=== PATIENT | female | born 1995 | race Two or more races ===

== ENCOUNTER 2024-09-12 18:22 | Emergency (ER) | payer MEDICAID, OTHER ==
[~2024-09-12] VITALS: Ht 154.9 cm; Wt 126.3 kg
--- NOTE | 2024-09-12 18:38 | ECG ---
[facility] Test Date: 2024-09-12 Test Time: 18:30:16 Pat Name: VETO DAVEY Department: ER Room: Gender: F Track Service Person: REJI : 1995 Requested By: ERICA PATE Order Number: [id number] Reading MD: Roberto Carlos Mccrary Measurements Intervals [place] Rate: 121 P: 81 [place]: 144 QRS: 84 QRSD: 86 T: 54 QT: 325 QTc: 461 Interpretive Statements Sinus tachycardia Baseline wander in lead(s) II,aVF,V3,V4 Electronically Signed On 09-13-2024 22:14:22 PDT by Roberto Carlos Mccrary Please click the below link to view image of tracing.
--- NOTE | 2024-09-12 18:38 | ED.PDOC ---
HPI Comments 29 year old female came to ER for chest pains. Patient has history of asthma. States for the past 3 days, she has been having intermittent episodes of sharp, substernal chest pains, 9/10 intensity, associated with shortness of breath and wheezing. States she ran out off her inhalers this morning. Patient appears very anxious at this time of care. Chief Complaint: Chest Pain Time Seen by MD: 18:38 Reviewed Notes: Nurses Notes Allergies: Coded Allergies: NO KNOWN ALLERGIES (Unverified , 09/12/24) Information Source: Patient Mode of Arrival: EMS Severity: Moderate Timing: Hours Duration: Since onset Location: Substernal Radiation: No Radiation Quality: Sharp Onset: With Light Exertion Cardiac Risk Factors: None PE Risk Factors: None History of: None Modifying Factors: Nothing Associated Signs and Symptoms: SOB Past Medical History PAST MEDICAL HISTORY: Asthma Surgical History: Denies all surgeries LUMBER STACKER History: Denies all LUMBER STACKER Hx Family History Family History: Reviewed,noncontributory to illness Social History Smoker: Non-Smoker Alcohol: Denies ETOH Use Drugs: Denies Drug Use Lives In: Home Constitutional: denies: chills, diaphoresis, fatigue, fever, malaise, sweats, weakness, others EENTM: denies: blurred vision, double vision, ear bleeding, ear discharge, ear drainage, ear pain, ear ringing, eye pain, eye redness, hearing loss, mouth pain, mouth swelling, nasal discharge, nose bleeding, nose congestion, nose pain, photophobia, tearing, throat pain, throat swelling, voice changes, others Respiratory: reports: SOB at rest, shortness of breath, wheezing; denies: cough, hemoptysis, orthopnea, SOB with excertion, stridor, others Cardiovascular: reports: chest pain; denies: dizzy spells, diaphoresis, Dyspnea on exertion, edema, irregular heart beat, left arm pain, lightheadedness, palpitations, PND, syncope, others Gastrointestinal: denies: abdomen distended, abdominal pain, blood streaked bowels, constipated, diarrhea, dysphagia, difficulty swallowing, hematemesis, melena, nausea, poor appetite, poor fluid intake, rectal bleeding, rectal pain, vomiting, others Genitourinary: denies: abnormal vagina bleeding, burning, dyspareunia, dysuria, flank pain, frequency, hematuria, incontinence, pain, , vagina discharge, urgency, others Neurological: denies: dizziness, fainting, headache, left sided numbness, left sided weakness, numbness, paresthesia, pre-existing deficit, right sided numbness, right sided weakness, seizure, speech problems, tingling, tremors, weakness, others Musculoskeletal: denies: back pain, gout, joint pain, joint swelling, muscle pain, muscle stiffness, neck pain, others Integumetry: denies: bruises, change in color, change in hair/nails, dryness, laceration, lesions, lumps, rash, wounds, others Allergic/Immunocompromised: denies: Difficulty Healing, Frequent Infections, Hives, Itching, others Hematologic/Lymphatic: denies: anemia, blood clots, easy bleeding, easy bruising, swollen glands, others Endocrine: denies: excessive hunger, excessive sweating, excessive thirst, excessive urination, flushing, intolerance to cold, intolerance to heat, unexplained weight gain, unexplained weight loss, others Psychiatric: denies: anxiety, bipolar disorder, depression, hopeless, panic disorder, schizophrenia, sleepless, suicidal, others Physical Exam General Appearance: No Apparent Distress, Normal HEENT: Normal ENT Inspection, Pharynx Normal, TMs Normal Neck: Full Range of Motion, Non-Tender, Normal, Normal Inspection Respiratory: Chest Non-Tender, No Accessory Muscle Use, Normal Breath Sounds, Wheezing Cardiovascular: No Edema, No JVD, No Murmur, No Gallop, Normal Peripheral Pulses, Regular Rate/Rhythm Breast Exam: Deferred Gastrointestinal: No Organomegaly, Non Tender, No Pulsatile Mass, Normal Bowel Sounds, Soft Genitalia: Deferred Pelvic: Deferred Rectal: Deferred Extremities: No calf tenderness, Normal capillary refill, Normal inspection, Normal range of motion, Non-tender, No pedal edema Musculoskeletal : Apperance: Normal Neurologic: Alert, regulatory compliance manager II-XII nml as Tested, No Motor Deficits, Normal Affect, Normal Mood, No Sensory Deficits Cerebellar Function: Normal Reflexes: Normal Skin: Dry, Normal Color, Warm Lymphatic: No Adenopathy EKG EKG : Pulse Rate (adult): 121 Cardiac Rhythm: ST Was a procedure done? Was a procedure done?: No CP Differential Dx Differential Diagnosis: Angina, Anxiety / Panic Attack, Hyperventilation, Sinus Tachycardia Differential Diagnosis: Angina, Chest Wall Pain, Costochondritis, Esophageal reflux/spasm, Gastritis, Myocardial Infarction, Pneumonia X-Ray, Labs, Meds, VS Vital Signs Date Time Temp Pulse Resp B/P (MAP) Pulse Ox O2 Delivery O2 Flow Rate FiO2 09/12/24 19:27 102 09/12/24 18:45 18 98 Room Air* 0 21 21 09/12/24 18:38 121 09/12/24 18:30 121 09/12/24 18:28 98.0 110 20 146/86 (106) 98 98.0 Lab Test 09/12/24 18:46 Range/Units White Blood Count 11.9 H 4.4-10.8 10^3/uL Red Blood Count 4.42 4.0-5.20 10^6/uL Hemoglobin 13.6 12.2-16.2 g/dL Hematocrit 40.2 36.0-46.0 % Mean Corpuscular Volume 91.0 80.0-100.0 fL Mean Corpuscular Hemoglobin 30.7 28.0-32.0 pg Mean Corpuscular Hemoglobin Concent 33.7 32.0-36.0 g/dL Red Cell Distribution Width 13.3 11.8-14.3 % Platelet Count 420 140-450 10^3/uL Mean Platelet Volume 6.6 L 6.9-10.8 fL Neutrophils (%) (Auto) 55.0 37.0-80.0 % Lymphocytes (%) (Auto) 35.3 10.0-50.0 % Monocytes (%) (Auto) 7.1 0.0-12.0 % Eosinophils (%) (Auto) 1.8 0.0-7.0 % Basophils (%) (Auto) 0.8 0.0-2.0 % Neutrophils # (Auto) 6.6 1.6-8.6 10 ^3/uL Lymphocytes # (Auto) 4.2 0.4-5.4 10 ^3/uL Monocytes # (Auto) 0.9 0-1.3 10 ^3/uL Eosinophils # (Auto) 0.2 0-0.8 10 ^3/uL Basophils # (Auto) 0.1 0-0.2 10 ^3/uL Nucleated Red Blood Cells 0.1 % D-Dimer, Quantitative < 0.19 0.0-0.49 mg/L FEU Sodium Level 142 136-145 mmol/L Potassium Level 3.8 3.5-5.1 mmol/L Chloride Level 111 H 98-107 mmol/L Carbon Dioxide Level 23 20-31 mmol/L Anion Gap 8 5-15 Blood Urea Nitrogen 8 L 9-23 mg/dL Creatinine 1.02 0.550-1.02 mg/dL Glomerular Filtration Rate Calc 75 >90 mL/min BUN/Creatinine Ratio 7.8 L 10.0-20.0 Serum Glucose 108 H 74-106 mg/dL Calcium Level 9.3 8.7-10.4 mg/dL Magnesium Level 1.9 1.6-2.6 mg/dL Total Bilirubin 0.3 0.2-1.0 mg/dL Aspartate Amino Transferase (AST) 14 13-40 U/L Alanine Aminotransferase (ALT) 21 7-40 U/L Alkaline Phosphatase 89 46-116 U/L Total Protein 7.3 5.7-8.2 g/dL Albumin 4.4 3.2-4.8 g/dL Beta HCG, Quantitative 0.9 L 1.5-4.2 mIU/mL Current Medications Medications (Trade) Dose Ordered Sig/Lidia Route Start Time Stop Time Status Last Admin Albuterol (Ventolin Medneb) 5 mg ONCE ONCE [facility] 09/12/24 18:45 09/12/24 18:46 DC 09/12/24 18:52 Ipratropium [place] (Atrovent Medneb) 0.5 mg ONCE ONCE NEB 09/12/24 18:45 09/12/24 18:46 DC 09/12/24 18:52 Time of 1ST Reevaluation: 18:34 Reevaluation 1ST: Unchanged Patient Education/Counseling: Diagnosis, Treatment Family Education/Counseling: No Family Present Departure 1 Departure Time of Disposition: 21:30 Impression: Primary Impression: Atypical chest pain Disposition: 01 HOME / SELF CARE / HOMELESS Condition: Stable Discharged With: Self Critical Care Note Critical Care Time?: No Stability Stability form required: No Heart Score Heart Score: Heart Score Response (Comments) Value History Slightly Suspicious 0 EKG Normal 0 Age <45 0 Risk Factors No known risk factors 0 Troponin Normal limit 0 Total 0 I personally scribed for ERICA PATE MD ([email or web address]) on 09/12/24 at 18:38. Electronically submitted by David Frost ([facility]). ERICA PATE MD Sep 12, 2024 18:38
[2024-09-12] MEDS: IPRATROPIUM BROM 0.5 MG/2.5ML INH SOL NEB ONE (18:52)
[2024-09-12] MEDS: ALBUTEROL SULF 2.5 MG/0.5ML(0.5%) NEB SOLN NEB ONE (18:52)
[2024-09-12 19:17] LABS: Alanine Aminotransferase 21 U/L (7-40); Albumin 4.4 g/dL (3.2-4.8); Alkaline Phosphatase 89 U/L (46-116); Anion Gap 8 (5-15); Aspartate Aminotransferase 14 U/L (13-40); BUN/Creatinine Ratio 7.8 (10.0-20.0); Basophils # (auto) 0.1 10 ^3/uL (0-0.2); Basophils % (auto) 0.8 % (0.0-2.0); Calcium 9.3 mg/dL (8.7-10.4); Carbon Dioxide 23 mmol/L (20-31); Eosinophils # (auto) 0.2 10 ^3/uL (0-0.8); Eosinophils % (auto) 1.8 % (0.0-7.0); Hematocrit 40.2 % (36.0-46.0); Hemoglobin 13.6 g/dL (12.2-16.2); Lymphocytes # (auto) 4.2 10 ^3/uL (0.4-5.4); Lymphocytes % (auto) 35.3 % (10.0-50.0); Magnesium 1.9 mg/dL (1.6-2.6); Mean Corpuscular Hemoglobin 30.7 pg (28.0-32.0); Mean Corpuscular Hgb Conc. 33.7 g/dL (32.0-36.0); Monocytes # (auto) 0.9 10 ^3/uL (0-1.3); Monocytes % (auto) 7.1 % (0.0-12.0); Neutrophils # (auto) 6.6 10 ^3/uL (1.6-8.6); Nucleated Red Blood Cells % 0.1 %; Platelet Count (auto) 420 10^3/uL (140-450); Potassium 3.8 mmol/L (3.5-5.1); Red Blood Cells 4.42 10^6/uL (4.0-5.20); Red Cell Distribution Width 13.3 % (11.8-14.3); Sodium 142 mmol/L (136-145); Total Protein 7.3 g/dL (5.7-8.2); White Blood Cell 11.9 10^3/uL (4.4-10.8)
[2024-09-12 19:24] LABS: Bilirubin, Total 0.3 mg/dL (0.2-1.0); Blood Urea Nitrogen 8 mg/dL (9-23); Chloride 111 mmol/L (98-107); Glucose 108 mg/dL (74-106)
[2024-09-12] MEDS: MAGNESIUM SULFATE 1GM/100ML 100 ML IV SCH (19:45)
--- NOTE | 2024-09-12 21:13 | DVH ---
CHEST RADIOGRAPH Indication: sob Technique: Single frontal view of the chest was obtained COMPARISON: None FINDINGS: Lines and Tubes: None Lungs: Clear Pleura: No effusion. No pneumothorax. Cardiomediastinal contours: Unremarkable Bones: Unremarkable IMPRESSION: No acute disease.
[2024-09-12] MEDS: SODIUM CHLORIDE 0.9% 1,000 ML IVB ONE (22:47)
[2024-09-12 22:51] VITALS: BP 122/77; PULSE 84; TEMP 98.3
[2024-09-12] MEDS ORDERED: [UNRECOGNIZED DRUG - CODE] XX (22:55)
[2024-09-12] MEDS ORDERED: ALBU108A5 IN (22:55)
[2024-09-12] MEDS ORDERED: PRED20TA2 PO (22:55)
[2024-09-12] MEDS ORDERED: ALBU0.084 NEB (22:55)
[2024-09-12 23:00] VITALS: RESP 20; O2SAT 96
[2024-09-12] MEDS: predniSONE 20 MG TAB PO ONE (23:00)
--- NOTE | 2024-09-14 10:21 | ECG ---
[facility] Test Date: 2024-09-12 Test Time: 19:27:20 Pat Name: VETO DAVEY Department: ED Room: Gender: F Hypo Splasher: ER : 1995 Requested By: ERICA PATE Order Number: [id number] Reading MD: Roberto Carlos Mccrary Measurements Intervals [place] Rate: 102 P: 74 OR: 159 QRS: 80 QRSD: 93 T: 49 QT: 357 QTc: 466 Interpretive Statements Sinus tachycardia Electronically Signed On 09-15-2024 18:37:19 PDT by Roberto Carlos Mccrary Please click the below link to view image of tracing.
--- NOTE | 2024-09-14 10:22 | ECG ---
[facility] Test Date: 2024-09-12 Test Time: 21:31:40 Pat Name: VETO DAVEY Department: ED Room: Gender: F Reverse Unit Operator: ER : 1995 Requested By: ERICA PATE Order Number: [id number] Reading MD: Roberto Carlos Mccrary Measurements Intervals [place] Rate: 93 P: 75 PA: 162 QRS: 82 QRSD: 88 T: 58 QT: 362 QTc: 451 Interpretive Statements Sinus rhythm Electronically Signed On 09-15-2024 18:37:43 PDT by Roberto Carlos Mccrary Please click the below link to view image of tracing.
== END 2024-09-12 23:45 | disposition home or self-care (01) ==
LOC: ER 18:24
DX: R07.89 Other chest pain (principal); J45.909 Unspecified asthma, uncomplicated; Z79.899 Other long term (current) drug therapy
CPT/HCPCS: 36415; 71045; 80053; 83735; 84702; 85025; 85379; 93005; 94640; 96360; 99285; J7030; J7512

== ENCOUNTER 2024-09-18 21:47 | Inpatient (IN) | payer MEDICAID ==
[~2024-09-18] VITALS: Ht 154.9 cm; Wt 85.9 kg
[~2024-09-18 21:47] MED LIST: ALBU0.084 NEB; ALBU108A5 IN; PRED20TA2 PO; [UNRECOGNIZED DRUG - CODE] XX
[2024-09-18 22:17] VITALS: PULSE 107; RESP 25; O2SAT 100
[2024-09-18] MEDS: methylPREDNISolone SOD SUCC 125 MG/2 ML VL IV ONE (22:24)
--- NOTE | 2024-09-18 22:41 | ED.PDOC ---
History of Present Illness HPI Comments 29-year-old female with PMHx Asthma brought in by EMS presents with a chief complaint of SOB and anxiety. Patient has been having worsening SOB over the last week. Patient was sating at 99% on room air, but was placed on oxygen by EMS due to increased WOB. Patient was given 2 Albuterol and 1 Atrovent breathing treatments by EMS. Chief Complaint: Shortness of Breath Time Seen by MD: 22:04 Primary Care Provider: none Reviewed Notes: Medications, Allergies Allergies: Coded Allergies: NO KNOWN ALLERGIES (Unverified , 09/12/24) Home Meds Active Scripts Budesonide-Formoterol Fumarate (Budesonide/Formoterol Fum 80-4.5 Mcg/Act) 1 Aer Aer, 2 AER IN A30WSIR PRN for 5 Days, #1 AER Prov:PHOENIX BERMAN MD 09/18/24 Prednisone (Prednisone) 20 Mg Tab, 20 MG PO BID for 5 Days, #10 MG Prov:ERICA PATE MD 09/12/24 Albuterol Sulfate (Albuterol Sulfate Hfa) 108 Mcg/Act Aer, 108 MCG IN Q6HP PRN, #1 AER Prov:ERICA PATE MD 09/12/24 Albuterol Sulfate (Albuterol Sulfate) 0.083 % Neb, 1 VIAL NEB Q4HPRN PRN, #50 VIAL 2 Refills Prov:ERICA PATE MD 09/12/24 Information Source: Patient, Emergency Med Personnel Mode of Arrival: EMS Severity: Moderate Timing: Hours Duration: Since onset Prehospital treatment: None Vital Signs Vital Signs Date Time Temp Pulse Resp B/P (MAP) Pulse Ox O2 Delivery O2 Flow Rate FiO2 09/18/24 23:11 16 95 Nasal Cannula* 1 24 09/18/24 23:11 105 09/18/24 23:00 123/64 (83) 09/18/24 22:13 98.1 98.1 Physical Exam General: Awake, alert and oriented. No acute distress. Skin: Skin in warm, dry and intact. Appropriate color for ethnicity. HEENT: The head is normocephalic and atraumatic. Conjunctivae are clear without exudates or hemorrhage. Sclera is non-icteric. EOM are intact. No signs of nystagmus. Eyelids are normal in appearance without swelling or lesions. Oral mucosa is pink and moist Neck: The neck is supple with normal range of motion. No JVD. Cardiac: Heart rate is rapid rhythm is normal. No murmurs, gallops, or rubs are auscultated. Respiratory: Tachypnea. Wheezes bilaterally Abdominal: Abdomen is soft, non-tender without distention. Bowel sounds are present and normoactive in all four quadrants. Extremities: Upper and lower extremities are atraumatic in appearance without deformity or edema. Neurological: The patient is awake, alert and oriented to person, place, and time with normal speech. Speech is clear. There is no facial asymmetry. Psychiatric: Appropriate mood and affect. Good judgement and insight. Review of Systems: REVIEW OF SYSTEMS: No fever, no chills, or fatigue HEENT: No sore throat, no earache, no congestion, no neck pain. Cardiac: Please chest pain. No palpitations. Lungs: Positive shortness of breath, no cough. GI: No nausea, no vomiting, no diarrhea, no constipation, no abdominal pain : No dysuria, frequency, or urgency. No hematuria. Musculoskeletal: No joint pain , no joint swelling, no extremity edema. Skin: No rash, no itching. 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 Was a procedure done?: No Differential Dx Considerations may include: Differential diagnoses considered includebut arenot limited to acute Bronchitis, Asthma, COPD, Pneumothorax, PE, CHF, Pulmonary HTN, Anemia, CO Poisoning, Methemoglobinemia, Hyperventilation, Metabolic Acidosis, Pulmonary Edema, Pneumonia, ACS, Pericardial Tamponade, Anxiety, other X-Ray, Labs, Meds, VS Vital Signs Date Time Temp Pulse Resp B/P (MAP) Pulse Ox O2 Delivery O2 Flow Rate FiO2 09/18/24 23:11 16 95 Nasal Cannula* 1 24 09/18/24 23:11 105 09/18/24 23:00 107 19 123/64 (83) 94 09/18/24 22:17 107 25 100 Room Air* 0 21 09/18/24 22:13 98.1 107 25 122/81 (95) 100 98.1 09/18/24 22:01 119 09/18/24 21:52 98.5 109 28 144/98 (113) 100 98.5 Lab Test 09/18/24 23:05 09/18/24 23:00 09/18/24 22:10 Range/Units Blood Gas Specimen Type Arterial Blood Gas Sample Site Left radial Blood Gas Patient Temperature 37.0 Arterial Blood Date Drawn [id number] Arterial Blood pH 7.449 7.350-7.450 Arterial Blood Partial Pressure CO2 32.4 32.0-45.0 mmHg Arterial Blood Partial Pressure O2 74.6 L 83.0-108.0 mmHg Arterial Blood HCO3 22.0 21.0-28.0 mmol/L Arterial Blood Oxygen Saturation 95.2 94.0-98.0 % Arterial Blood Base Excess -1.2 -2.0-3.0 mmol/L Arterial Blood Oxyhemoglobin 93.3 L 94.0-98.0 % Arterial Blood Carboxyhemoglobin 1.4 0.5-1.5 % Arterial Blood Methemoglobin 0.6 0.0-1.5 % Cristian Test Yes Blood Gas Total Hemoglobin 14.10 12.0-16.0 g/dL Blood Gas Liter Flow 1.00 Blood Gas Modality Nasal cannula Blood Gas Spontaneous Rate 18 FiO2 % 24.0 Specimen Drawn By Vaishali arzola rt White Blood Count 15.8 #H 4.4-10.8 10^3/uL Red Blood Count 4.32 4.0-5.20 10^6/uL Hemoglobin 13.5 12.2-16.2 g/dL Hematocrit 39.1 36.0-46.0 % Mean Corpuscular Volume 90.5 80.0-100.0 fL Mean Corpuscular Hemoglobin 31.3 28.0-32.0 pg Mean Corpuscular Hemoglobin Concent 34.6 32.0-36.0 g/dL Red Cell Distribution Width 13.6 11.8-14.3 % Platelet Count 384 140-450 10^3/uL Mean Platelet Volume 6.5 L 6.9-10.8 fL Neutrophils (%) (Auto) 63.3 37.0-80.0 % Lymphocytes (%) (Auto) 28.9 10.0-50.0 % Monocytes (%) (Auto) 5.5 0.0-12.0 % Eosinophils (%) (Auto) 1.6 0.0-7.0 % Basophils (%) (Auto) 0.7 0.0-2.0 % Neutrophils # (Auto) 10.0 H 1.6-8.6 10 ^3/uL Lymphocytes # (Auto) 4.5 0.4-5.4 10 ^3/uL Monocytes # (Auto) 0.9 0-1.3 10 ^3/uL Eosinophils # (Auto) 0.2 0-0.8 10 ^3/uL Basophils # (Auto) 0.1 0-0.2 10 ^3/uL Nucleated Red Blood Cells 0.1 % Sodium Level 137 # 136-145 mmol/L Potassium Level 3.6 3.5-5.1 mmol/L Chloride Level 106 98-107 mmol/L Carbon Dioxide Level 23 20-31 mmol/L Anion Gap 8 5-15 Blood Urea Nitrogen 10 9-23 mg/dL Creatinine 0.77 0.550-1.02 mg/dL Glomerular Filtration Rate Calc 106 >90 mL/min BUN/Creatinine Ratio 13.0 10.0-20.0 Serum Glucose 122 H 74-106 mg/dL Lactic Acid Level 1.1 0.4-2.0 mmol/L Calcium Level 9.6 8.7-10.4 mg/dL Total Bilirubin 0.2 0.2-1.0 mg/dL Aspartate Amino Transferase (AST) 8 L 13-40 U/L Alanine Aminotransferase (ALT) 15 7-40 U/L Alkaline Phosphatase 76 46-116 U/L Troponin I High Sensitivity 7 </=34 ng/L B-Type Natriuretic Peptide 2.13 0-100 pg/mL Total Protein 7.4 5.7-8.2 g/dL Albumin 4.3 3.2-4.8 g/dL Influenza Type A Antigen Negative Negative Influenza Type B Antigen Negative Negative SARS-CoV-2 Antigen (Rapid) Negative NEGATIVE Current Medications Medications (Trade) Dose Ordered Sig/Lidia Route Start Time Stop Time Status Last Admin Albuterol (Ventolin Medneb) 2.5 mg ONCE ONCE NEB 09/18/24 22:15 09/18/24 22:18 DC 09/18/24 23:07 Ipratropium [place] (Atrovent Medneb) 0.5 mg ONCE ONCE NEB 09/18/24 22:15 09/18/24 22:18 DC 09/18/24 23:07 Methylprednisolone Sodium Succinate (Solu Medrol) 80 mg ONCE ONCE IV 09/18/24 22:15 09/18/24 22:18 DC 09/18/24 22:24 Magnesium Sulfate/ Dextrose 100 ml @ 100 mls/hr Q1H IV 09/18/24 22:15 09/19/24 00:14 09/18/24 23:17 Time of 1ST Reevaluation: 22:34 Reevaluation 1ST: Unchanged Patient Education/Counseling: Diagnosis, Treatment, Prognosis Family Education/Counseling: No Family Present Departure 1 Departure Time of Disposition: 00:08 Impression: Primary Impression: Asthma exacerbation Disposition: ADMITTED INPATIENT Condition: Stable Comments 29-year-old female with to presents to the emergency department for severe asthma exacerbation within the past 5 days as well as past medical history of intubation x4. Patient is stabilized in the emergency department with respiratory treatments, Solu-Medrol, magnesium. Patient admitted for further treatment, evaluation and monitoring. Critical Care Note Critical Care Time?: No Stability Stability form required: No Heart Score Heart Score: Heart Score Response (Comments) Value History N/A 0 EKG N/A 0 Age N/A 0 Risk Factors N/A 0 Troponin N/A 0 Total 0 I personally scribed for PHOENIX BERMAN MD ([email or web address]) on 09/18/24 at 22:41. Electronically submitted by Wilbur Milan ([email or web address]). PHOENIX BERMAN MD Sep 18, 2024 22:41
[2024-09-18] MEDS: MAGNESIUM SULFATE 1GM/100ML 100 ML IV SCH (22:52)
[2024-09-18] MEDS: ALBUTEROL SULF 2.5 MG/0.5ML(0.5%) NEB SOLN NEB ONE (23:07)
[2024-09-18] MEDS: IPRATROPIUM BROM 0.5 MG/2.5ML INH SOL NEB ONE (23:07)
[2024-09-18 23:11] LABS: Base Excess -1.2 mmol/L (-2.0-3.0)
[2024-09-18 23:12] LABS: Basophils # (auto) 0.1 10 ^3/uL (0-0.2); Basophils % (auto) 0.7 % (0.0-2.0); Eosinophils # (auto) 0.2 10 ^3/uL (0-0.8); Eosinophils % (auto) 1.6 % (0.0-7.0); Hematocrit 39.1 % (36.0-46.0); Hemoglobin 13.5 g/dL (12.2-16.2); Lymphocytes # (auto) 4.5 10 ^3/uL (0.4-5.4); Lymphocytes % (auto) 28.9 % (10.0-50.0); Mean Corpuscular Hemoglobin 31.3 pg (28.0-32.0); Mean Corpuscular Hgb Conc. 34.6 g/dL (32.0-36.0); Mean Corpuscular Volume 90.5 fL (80.0-100.0); Monocytes # (auto) 0.9 10 ^3/uL (0-1.3); Monocytes % (auto) 5.5 % (0.0-12.0); Neutrophils % (auto) 63.3 % (37.0-80.0); Nucleated Red Blood Cells % 0.1 %; Platelet Count (auto) 384 10^3/uL (140-450); Red Blood Cells 4.32 10^6/uL (4.0-5.20); Red Cell Distribution Width 13.6 % (11.8-14.3); White Blood Cell 15.8 10^3/uL (4.4-10.8)
[2024-09-18 23:23] LABS: COVID19 ANTIGEN SOFIA FIA NEGATIVE (NEGATIVE); Rapid Influenza A Negative (Negative); Rapid Influenza B Negative (Negative)
[2024-09-18 23:31] LABS: Alanine Aminotransferase 15 U/L (7-40); Albumin 4.3 g/dL (3.2-4.8); Alkaline Phosphatase 76 U/L (46-116); Anion Gap 8 (5-15); Blood Urea Nitrogen 10 mg/dL (9-23); Calcium 9.6 mg/dL (8.7-10.4); Carbon Dioxide 23 mmol/L (20-31); Chloride 106 mmol/L (98-107); Potassium 3.6 mmol/L (3.5-5.1); Sodium 137 mmol/L (136-145); Total Protein 7.4 g/dL (5.7-8.2)
[2024-09-18 23:35] LABS: Aspartate Aminotransferase 8 U/L (13-40); Bilirubin, Total 0.2 mg/dL (0.2-1.0); Glucose 122 mg/dL (74-106)
[2024-09-18] MEDS ORDERED: BUDE1AER5 IN (23:53)
[2024-09-19] VITALS (7 sets, daily range): BP systolic 144; BP diastolic 77; PULSE 87–99; RESP 16–19; TEMP 98.2–98.5; O2SAT 98–100
--- NOTE | 2024-09-19 | DVH ---
CHEST RADIOGRAPH Indication: Shortness of breath Technique: Single frontal view of the chest was obtained Comparison: XY CHEST PORTABLE on DOS: 09/12/24 FINDINGS: Lines and Tubes: None Lungs: No focal consolidation. Pleura: No effusion. No pneumothorax. Cardiomediastinal contours: Unremarkable Bones: No acute osseous abnormality. IMPRESSION: 1. No acute cardiopulmonary disease.
[2024-09-19] MEDS: IPRATROPIUM BROM 0.5 MG/2.5ML INH SOL NEB ONE (03:30)
[2024-09-19] MEDS: ALBUTEROL SULF 2.5 MG/0.5ML(0.5%) NEB SOLN NEB ONE (03:30)
--- NOTE | 2024-09-19 05:39 | ECG ---
[facility] Test Date: 2024-09-18 Test Time: 22:01:28 Pat Name: VETO DAVEY Department: ED Room: Gender: F Information Clerk Brokerage: CITLALY : 1995 Requested By: PHOENIX BERMAN Order Number: [id number] Reading MD: Measurements Intervals [place] Rate: 119 P: 75 [place]: 157 QRS: 73 QRSD: 73 T: 41 QT: 309 QTc: 435 Interpretive Statements Sinus tachycardia Please click the below link to view image of tracing.
--- NOTE | 2024-09-19 05:39 | ECG ---
[facility] Test Date: 2024-09-18 Test Time: 23:11:55 Pat Name: VETO DAVEY Department: ED Room: Gender: F Specialty Manufacturing Supervisor: CITLALY : 1995 Requested By: PHOENIX BERMAN Order Number: [id number] Reading MD: Measurements Intervals [place] Rate: 105 P: 76 MD: 164 QRS: 58 QRSD: 94 T: 30 QT: 345 QTc: 457 Interpretive Statements Sinus tachycardia Please click the below link to view image of tracing.
[2024-09-19] MEDS ORDERED: ONDANSETRON HCL 4 MG/2 ML VIAL IV PRN (11:00)
[2024-09-19] MEDS ORDERED: DOCUSATE SOD 100 MG CAP PO PRN (11:00)
[2024-09-19] MEDS ORDERED: ACETAMINOPHEN 325 MG TAB PO PRN (11:00)
--- NOTE | 2024-09-19 11:09 | DVHHP2 ---
History of Present Illness Reason for Visit: Shortness of breath History of Present Illness Max De La Cruz is a 29-year-old female with past medical history of asthma and anxiety, who came in for shortness of breath. Patient states her anxiety was increasing causing her shortness of breath to increase. Patient called EMS due t o difficulty breathing. She was given breathing treatments by EMS. It did decrease her work of breathing, she continues to have expiratory wheezing. Patient states she uses her rescue inhaler daily. She was recently seen here and discharged with Spiriva, but was unable to pick it up due to the pharmacy being out of the medication. Pulmonary: Asthma Psych: Anxiety Past Surgical History: None Smoke: No ALCOHOL: none Drugs: None Lives: with Family Domestic Violence: Neg Review of Systems Constitutional: No: Fever, Chills, Sweats, Weakness, Malaise, Other Eyes: No: Pain, Vision change, Conjunctivae inflammation, Eyelid inflammation, Other, Redness ENT: No: Ear pain, Ear discharge, Nose pain, Nose discharge, Nose congestion, Mouth pain, Mouth swelling, Throat pain, Throat swelling, Other Respiratory: Shortness of breath, SOB with excertion, Wheezing; No: Cough, Dry, Hemoptysis, Pleuritic Pain, Sputum, Wheezing, Other Cardiovascular: No: Chest Pain, Palpitations, Orthopnea, Paroxysmal Noc. Dyspnea, Edema, Lt Headedness, Other Gastrointestinal: No: Nausea, Vomiting, Abdominal Pain, Diarrhea, Constipation, Melena, Hematochezia, Other Genitourinary: No Dysuria, No Frequency, No Incontinence, No Hematuria, No Retention, No Other Musculoskeletal: No: other, neck pain, shoulder pain, arm pain, back pain, hand pain, leg pain, foot pain Skin: No: Rash, Lesions, Jaundice, Bruising, Other Neurological: No: Weakness, Numbness, Incoordination, Change in speech, C onfusion, Seizures, Other Allergies: Coded Allergies: NO KNOWN ALLERGIES (Unverified , 09/12/24) Medications Current Medications Medications Dose Ordered Sig/Lidia Route Start Time Stop Time Status Last Admin Dose Admin Sodium Chloride 10 ml Q8HR IV 09/19/24 14:00 UNV Ondansetron HCl 4 mg Q4HP PRN IV 09/19/24 11:00 UNV Docusate Sodium 100 mg BIDPRN PRN PO 09/19/24 11:00 UNV Acetaminophen 650 mg Q6HP PRN PO 09/19/24 11:00 UNV Albuterol 2.5 mg Q6HWA NEB 09/19/24 12:00 UNV Ipratropium Traer 0.5 mg Q6HWA NEB 09/19/24 12:00 UNV Methylprednisolone Sodium Succinate 40 mg BID IV 09/19/24 22:00 UNV Exam Vital Signs Vital Signs Date Time Temp Pulse Resp B/P (MAP) Pulse Ox O2 Delivery O2 Flow Rate FiO2 09/19/24 08:00 98.2 85 18 117/53 (74) 97 98.2 09/19/24 08:00 Nasal Cannula* 2 28 General Appearance: Alert, Oriented X3, Cooperative, moderate distress HEENT: Atraumatic, PERRLA Respiratory: Other (expiratory wheezing) Cardiovascular: Regular rate, Normal S1, Normal S2, No murmurs Abdominal: Normal bowel sounds, Soft, No tenderness, No hepatospenomegaly Extremities: No clubbing, No cyanosis, No edema, Normal pulses, No tenderness/swelling Skin: No rashes, No breakdown, No significant lesion Neuro: Normal gait, Normal speech, Strength at 5/5 X4 ext Psych/Mental Status: Mental status NL, Mood NL Labs/Xrays Labs Test 09/19/24 00:31 09/18/24 23:05 09/18/24 23:00 09/18/24 22:10 Range/Units Troponin I High Sensitivity 6 </=34 ng/L Blood Gas Specimen Type Arterial Blood Gas Sample Site Left radial Blood Gas Patient Temperature 37.0 Arterial Blood Date Drawn [id number] Arterial Blood pH 7.449 7.350-7.450 Arterial Blood Partial Pressure CO2 32.4 32.0-45.0 mmHg Arterial Blood Partial Pressure O2 74.6 L 83.0-108.0 mmHg Arterial Blood HCO3 22.0 21.0-28.0 mmol/L Arterial Blood Oxygen Saturation 95.2 94.0-98.0 % Arterial Blood Base Excess -1.2 -2.0-3.0 mmol/L Arterial Blood Oxyhemoglobin 93.3 L 94.0-98.0 % Arterial Blood Carboxyhemoglobin 1.4 0.5-1.5 % Arterial Blood Methemoglobin 0.6 0.0-1.5 % Cristian Test Yes Blood Gas Total Hemoglobin 14.10 12.0-16.0 g/dL Blood Gas Liter Flow 1.00 Blood Gas Modality Nasal cannula Blood Gas Spontaneous Rate 18 FiO2 % 24.0 Specimen Drawn By Vaishali arzola rt White Blood Count 15.8 #H 4.4-10.8 10^3/uL Red Blood Count 4.32 4.0-5.20 10^6/uL Hemoglobin 13.5 12.2-16.2 g/dL Hematocrit 39.1 36.0-46.0 % Mean Corpuscular Volume 90.5 80.0-100.0 fL Mean Corpuscular Hemoglobin 31.3 28.0-32.0 pg Mean Corpuscular Hemoglobin Concent 34.6 32.0-36.0 g/dL Red Cell Distribution Width 13.6 11.8-14.3 % Platelet Count 384 140-450 10^3/uL Mean Platelet Volume 6.5 L 6.9-10.8 fL Neutrophils (%) (Auto) 63.3 37.0-80.0 % Lymphocytes (%) (Auto) 28.9 10.0-50.0 % Monocytes (%) (Auto) 5.5 0.0-12.0 % Eosinophils (%) (Auto) 1.6 0.0-7.0 % Basophils (%) (Auto) 0.7 0.0-2.0 % Neutrophils # (Auto) 10.0 H 1.6-8.6 10 ^3/uL Lymphocytes # (Auto) 4.5 0.4-5.4 10 ^3/uL Monocytes # (Auto) 0.9 0-1.3 10 ^3/uL Eosinophils # (Auto) 0.2 0-0.8 10 ^3/uL Basophils # (Auto) 0.1 0-0.2 10 ^3/uL Nucleated Red Blood Cells 0.1 % Sodium Level 137 # 136-145 mmol/L Potassium Level 3.6 3.5-5.1 mmol/L Chloride Level 106 98-107 mmol/L Carbon Dioxide Level 23 20-31 mmol/L Anion Gap 8 5-15 Blood Urea Nitrogen 10 9-23 mg/dL Creatinine 0.77 0.550-1.02 mg/dL Glomerular Filtration Rate Calc 106 >90 mL/min BUN/Creatinine Ratio 13.0 10.0-20.0 Serum Glucose 122 H 74-106 mg/dL Lactic Acid Level 1.1 0.4-2.0 mmol/L Calcium Level 9.6 8.7-10.4 mg/dL Total Bilirubin 0.2 0.2-1.0 mg/dL Aspartate Amino Transferase (AST) 8 L 13-40 U/L Alanine Aminotransferase (ALT) 15 7-40 U/L Alkaline Phosphatase 76 46-116 U/L B-Type Natriuretic Peptide 2.13 0-100 pg/mL Total Protein 7.4 5.7-8.2 g/dL Albumin 4.3 3.2-4.8 g/dL Influenza Type A Antigen Negative Negative Influenza Type B Antigen Negative Negative SARS-CoV-2 Antigen (Rapid) Negative NEGATIVE CHEST RADIOGRAPH FINDINGS: Lines and Tubes: None Lungs: No focal consolidation. Pleura: No effusion. No pneumothorax. Cardiomediastinal contours: Unremarkable Bones: No acute osseous abnormality. IMPRESSION: 1. No acute cardiopulmonary disease. Assessment/Plan Assessment/Plan Assessment: Asthma exacerbation, Leukocytosis, Anxiety, Plan: Admit to Med-Surg, IV steroids, IV antibiotics, Breathing treatments, Supplemental oxygen as needed, Plan discussed with: Patient My Orders Orders - EZEKIEL STEVENSON Procedure Category Date Status Time Admit ADMIT 09/19/24 Transmitted 10:59 Code Status CODE 09/19/24 Transmitted 10:59 Sodium Chloride Lock PHA 09/19/24 Transmitted (Saline Lock Ns) 14:00 Ondansetron Hcl PHA 09/19/24 Transmitted (Zofran) 11:00 Docusate Sodium PHA 09/19/24 Transmitted Capsule (Colace 11:00 Complete Blood Count LAB 09/20/24 Verified 04:00 Comprehensive LAB 09/20/24 Verified Metabolic Panel 04:00 Condition: Serious GLORIA 09/19/24 Transmitted 10:59 Acetaminophen Tablet PHA 09/19/24 Transmitted (Tylenol Tablet) 11:00 Albuterol Medneb PHA 09/19/24 Transmitted (Ventolin Medneb) 12:00 Ipratropium Medneb PHA 09/19/24 Transmitted (Atrovent Medneb) 12:00 Methylprednisolone PHA 09/19/24 Transmitted Sod Succ (Solu Medrol 22:00 Date of Service: Sep 19, 2024 Billing Provider: ZEEKIEL STEVENSON Common Visit Codes: [id number] INP/OBS CARE (MOD) EZEKIEL STEVENSON DES[employer]AL[employer] ENGINEER Sep 19, 2024 11:09
[2024-09-19] MEDS: SODIUM CHLOR 0.9% PF (SALINE LOCK) 10ML VIAL/SYR IV SCH (13:32)
[2024-09-19] MEDS: IPRATROPIUM BROM 0.5 MG/2.5ML INH SOL NEB SCH (13:43)
[2024-09-19] MEDS: ALBUTEROL SULF 2.5 MG/0.5ML(0.5%) NEB SOLN NEB SCH (13:43)
[2024-09-19] MEDS: hydrOXYzine 25 MG TAB or CAP PO PRN (14:52)
[2024-09-19] MEDS: cefTRIAXone 1GM/50ML D5W 50 ML IV ONE (17:09)
[2024-09-19] MEDS: AZITHROMYCIN 500MG/ 250ML 250 ML IV ONE (17:49)
[2024-09-19] MEDS ORDERED: methylPREDNISolone SOD SUCC 40 MG/ML VL IV SCH (22:00)
[2024-09-20] MEDS ORDERED: cefTRIAXone 1GM/50ML D5W 50 ML IV SCH (09:00)
[2024-09-20] MEDS ORDERED: AZITHROMYCIN 500MG/ 250ML 250 ML IV SCH (10:00)
== END 2024-09-19 18:56 | disposition left against medical advice (07) | DRG 141 ==
LOC: ER 21:47 → EDBD 21:47 → OVERFLOW 09-19 10:59
PROVIDERS: ADMIT Nurse Practitioner Family; ATTEND Nurse Practitioner Family
DX: J45.901 Unspecified asthma with (acute) exacerbation (principal); D72.829 Elevated white blood cell count, unspecified; F41.9 Anxiety disorder, unspecified; Z53.29 Procedure and treatment not carried out because of patient's decision for other reasons; Z20.822 Contact with and (suspected) exposure to COVID-19; Z79.899 Other long term (current) drug therapy
CPT/HCPCS: 36415; 36600; 80053; 82805; 83605; 83880; 84484; 85025; 87426; 87804; 94640; 96374; G0378